=== PATIENT | female | born 1950 | race Caucasian/White ===

== ENCOUNTER → 2017-10-05 | Day surgery (SDC) | payer MEDICARE ==
[2017-09-28 10:44] LABS: BASOPHILS # (AUTO) 0.1 (0.0-0.1); EOSINOPHILS # (AUTO) 0.1 (0.0-0.4); HEMATOCRIT 41.9 % (34.2-44.1); HEMOGLOBIN 13.8 g/dL (12.0-16.0); LYMPHOCYTES # (AUTO) 1.6 (1.0-3.2); LYMPHOCYTES % 26.3 % (18.0-39.1); MEAN CORPUSCULAR HEMOGLOBIN 29.3 pg (28-32); MEAN CORPUSCULAR HGB CONC 32.9 g/dL (31-35); MONOCYTES # (AUTO) 0.5 (0.2-0.8); NEUTROPHILS # (AUTO) 3.8 (2.1-6.9); NEUTROPHILS % 62.5 % (38.7-80.0); PLATELET COUNT 296 x10e3/uL (140-360); RED BLOOD COUNT 4.71 x10e6/uL (3.6-5.1); RED CELL DISTRIBUTION WIDTH 13.5 % (11.7-14.4)
[~2017-10-05] MED LIST: CRESTOR10 MG; FENTANYL CITRATE/PF 100MCG/2 ML INJ ONE; HYDROCHLOROTHIA25 MG PO; HYOSCYAMINE SULFATE 0.5 MG/ML AMP ONE; KLOR-CON M2020 MEQ PO; MIDAZOLAM HCL 2 MG/2 ML VIAL ONE; MYRBETRIQ50 MG; PROPOFOL IV EMULSION 10 MG/ML 50 ML VIAL ONE; TAZTIA XT360 MG PO
--- NOTE | 2017-10-05 11:21 | Operative Report ---
DATE OF PROCEDURE: October 05, 2017 REFERRING PHYSICIAN: Kyle Moore MD PROCEDURES PERFORMED 1. Esophagogastroduodenoscopy with biopsies. 2. Colonoscopy with polypectomy. INDICATIONS FOR EGD: Acid reflux. INDICATIONS FOR COLONOSCOPY: Colorectal cancer screening and family history of colon cancer. MEDICATION: Patient was done under MAC. Please see anesthesiologist's note. PROCEDURE: With the patient in the left lateral decubitus position, the flexible fiberoptic Olympus gastroscope was introduced into the esophagus under direct visualization without any difficulty. There was some patchy erythema noted in the distal esophagus. The scope was then advanced with ease into the stomach, traversing a small sliding hiatal hernia. Mucosa overlying the antrum and the body revealed some patchy erythema and low-grade to moderate edema, and biopsies were obtained and sent to stain for H. pylori. Pylorus appeared to be of normal contour and shape. It was intubated with ease, and the scope was advanced all the way to the 2nd portion of the duodenum. The scope was then withdrawn slowly. Mucosa overlying the proximal 2nd portion and the duodenal bulb appeared to be within normal limits. The scope was then withdrawn back into the stomach and retroflexed, and the mucosa overlying the fundus and cardia appeared to be within normal limits. The scope was then straightened out. The stomach was decompressed. The scope was subsequently withdrawn. Patient tolerated the procedure well. IMPRESSION 1. Distal esophagitis. 2. Small sliding hiatal hernia. 3. Gastritis, biopsied. Biopsies sent to stain for H. pylori. PLAN: Follow up histology. Initiate Protonix 40 mg 1 p.o. q.a.m. a.c. The patient was then turned around. After adequate lubrication of the anal canal, a flexible fiberoptic Olympus colonoscope was inserted into the rectum with ease and advanced all the way to the cecum. A minute polyp was hot biopsied from the cecum. The ascending, transverse and descending appeared to be within normal limits. Three minute polyps were hot biopsied from the sigmoid colon, and 3 minute hyperplastic-appearing polyps were hot biopsied from the rectum. The scope was then retroflexed into the distal rectum, and small internal hemorrhoids were noted, none of which was actively bleeding. The scope was then straightened out. It was subsequently withdrawn. Patient tolerated the procedure well. IMPRESSION 1. Cecal polyp, hot biopsied. 2. Sigmoid polyps times 3, hot biopsied. 3. Rectal polyps times 3, hot biopsied. 4. Internal hemorrhoids, none actively bleeding. PLAN: Follow up histology. Initiate high-fiber, low-fat diet. Initiate high-fiber supplement. Patient will need a followup colonoscopy in 3 years. Job#: [id number] cc:KYLE MOORE MD
== END | disposition home or self-care (01) ==
LOC: OR 08:07
PROVIDERS: ATTEND Internal Medicine Gastroenterology
DX: Z12.11 Encounter for screening for malignant neoplasm of colon (principal); D12.0 Benign neoplasm of cecum; D12.5 Benign neoplasm of sigmoid colon; K62.1 Rectal polyp; K29.70 Gastritis, unspecified, without bleeding; K20.9 Esophagitis, unspecified; K44.9 Diaphragmatic hernia without obstruction or gangrene; K64.8 Other hemorrhoids; I10 Essential (primary) hypertension; Z01.810 Encounter for preprocedural cardiovascular examination; Z01.812 Encounter for preprocedural laboratory examination; Z85.828 Personal history of other malignant neoplasm of skin; Z80.0 Family history of malignant neoplasm of digestive organs
CPT/HCPCS: 36415; 43239; 45384; 85025; 93005; J1980; J2250; 45378

== ENCOUNTER → 2021-02-20 | Outpatient (CLI) | payer MEDICARE ==
[~2021-02-20] MED LIST changes: -FENTANYL CITRATE/PF 100MCG/2 ML INJ ONE; -HYOSCYAMINE SULFATE 0.5 MG/ML AMP ONE; +IOPAMIDOL 370 MG/ML 200 ML INFUS..BTL INJ ONE; -MIDAZOLAM HCL 2 MG/2 ML VIAL ONE; -PROPOFOL IV EMULSION 10 MG/ML 50 ML VIAL ONE; +SODIUM CHLORIDE 0.9% 50ML 50 ML ONE
== END ==
LOC: CT 09:24
PROVIDERS: ATTEND Internal Medicine
DX: R07.9 Chest pain, unspecified (principal)
CPT/HCPCS: 71275; Q9967

== ENCOUNTER → 2021-06-06 | Day surgery (SDC) | payer MEDICARE ==
[2021-06-04 09:50] LABS: BASOPHILS # (AUTO) 0.1 (0.0-0.1); BASOPHILS % 1.1 % (0.0-1.0); EOSINOPHILS # (AUTO) 0.1 (0.0-0.4); EOSINOPHILS % 1.5 % (0.0-6.0); HEMATOCRIT 39.9 % (34.2-44.1); HEMOGLOBIN 12.6 g/dL (12.0-16.0); LYMPHOCYTES # (AUTO) 1.5 (1.0-3.2); LYMPHOCYTES % 27.7 % (18.0-39.1); MEAN CORPUSCULAR HEMOGLOBIN 28.3 pg (28-32); MEAN CORPUSCULAR HGB CONC 31.6 g/dL (31-35); MEAN CORPUSCULAR VOLUME 89.7 fL (81-99); MONOCYTES # (AUTO) 0.5 (0.2-0.8); MONOCYTES % 9.6 % (4.4-11.3); NEUTROPHILS # (AUTO) 3.3 (2.1-6.9); NEUTROPHILS % 59.9 % (38.7-80.0); PLATELET COUNT 317 x10e3/uL (140-360); RED BLOOD COUNT 4.45 x10e6/uL (3.6-5.1); RED CELL DISTRIBUTION WIDTH 14.2 % (11.7-14.4)
[~2021-06-06] MED LIST changes: +FENTANYL CITRATE/PF 100MCG/2 ML INJ ONE; +HYOSCYAMINE SULFATE 0.5 MG/ML INJ ONE; -IOPAMIDOL 370 MG/ML 200 ML INFUS..BTL INJ ONE; +LIDOCAINE HCL 2% LOCAL INJ 5 ML SDV VIAL INJ ONE; +METOCLOPRAMIDE HCL 10 MG/2ML VIAL ONE; +MIDAZOLAM HCL 2 MG/2 ML VIAL ONE; +PANTOPRAZOLE SO40 MG PO; +PROPOFOL IV EMULSION 10 MG/ML 20 ML VIAL ONE; -SODIUM CHLORIDE 0.9% 50ML 50 ML ONE
[2021-06-06 11:45] VITALS: BP 111/67
== END | disposition home or self-care (01) ==
LOC: OR 07:50
PROVIDERS: ATTEND Internal Medicine Gastroenterology
DX: K29.50 Unspecified chronic gastritis without bleeding (principal); Z86.010 Personal history of colon polyps; K31.7 Polyp of stomach and duodenum; K20.90 Esophagitis, unspecified without bleeding; K44.9 Diaphragmatic hernia without obstruction or gangrene; K57.30 Diverticulosis of large intestine without perforation or abscess without bleeding; K64.8 Other hemorrhoids; K31.9 Disease of stomach and duodenum, unspecified; I10 Essential (primary) hypertension; E78.5 Hyperlipidemia, unspecified; Z01.810 Encounter for preprocedural cardiovascular examination; Z01.812 Encounter for preprocedural laboratory examination; Z20.822 Contact with and (suspected) exposure to COVID-19; Z79.899 Other long term (current) drug therapy; Z85.828 Personal history of other malignant neoplasm of skin; Z80.0 Family history of malignant neoplasm of digestive organs
CPT/HCPCS: 36415; 43239; 45378; 85025; 93005; J1980; J2001; J2250; J2704; J2765; J3010; U0002

== ENCOUNTER → 2021-07-15 | Outpatient (CLI) | payer MEDICARE ==
[~2021-07-15] MED LIST changes: -FENTANYL CITRATE/PF 100MCG/2 ML INJ ONE; -HYOSCYAMINE SULFATE 0.5 MG/ML INJ ONE; -LIDOCAINE HCL 2% LOCAL INJ 5 ML SDV VIAL INJ ONE; -METOCLOPRAMIDE HCL 10 MG/2ML VIAL ONE; -MIDAZOLAM HCL 2 MG/2 ML VIAL ONE; -PROPOFOL IV EMULSION 10 MG/ML 20 ML VIAL ONE
== END ==
LOC: CT 15:23
PROVIDERS: ATTEND Internal Medicine Critical Care Medicine
DX: R05.2 Subacute cough (principal); R91.8 Other nonspecific abnormal finding of lung field; K21.9 Gastro-esophageal reflux disease without esophagitis; E66.3 Overweight
CPT/HCPCS: 71250

== ENCOUNTER → 2022-02-19 | Outpatient (CLI) | payer MEDICARE | LOC: CT 10:53 | PROVIDERS: ATTEND Internal Medicine Critical Care Medicine | DX: R05.2 Subacute cough (principal); R91.8 Other nonspecific abnormal finding of lung field; E66.3 Overweight; K21.9 Gastro-esophageal reflux disease without esophagitis; J30.2 Other seasonal allergic rhinitis | CPT/HCPCS: 71250 ==

== ENCOUNTER → 2024-11-08 | Day surgery (SDC) | payer MEDICARE ==
[2024-11-03 10:28] LABS: BASOPHILS # (AUTO) 0.1 (0.0-0.1); EOSINOPHILS # (AUTO) 0.1 (0.0-0.4); EOSINOPHILS % 1.3 % (0.0-6.0); HEMATOCRIT 38.2 % (34.2-44.1); HEMOGLOBIN 12.5 g/dL (12.0-16.0); LYMPHOCYTES # (AUTO) 1.5 (1.0-3.2); LYMPHOCYTES % 24.2 % (18.0-39.1); MEAN CORPUSCULAR HEMOGLOBIN 28.7 pg (28-32); MEAN CORPUSCULAR HGB CONC 32.7 g/dL (31-35); MEAN CORPUSCULAR VOLUME 87.8 fL (81-99); MONOCYTES # (AUTO) 0.5 (0.2-0.8); MONOCYTES % 7.8 % (4.4-11.3); NEUTROPHILS # (AUTO) 4.1 (2.1-6.9); NEUTROPHILS % 65.4 % (38.7-80.0); PLATELET COUNT 317 x10e3/uL (140-360); RED BLOOD COUNT 4.35 x10e6/uL (3.6-5.1); RED CELL DISTRIBUTION WIDTH 14.9 % (11.7-14.4); WHITE BLOOD COUNT 6.31 x10e3/uL (4.8-10.8)
[~2024-11-08] MED LIST changes: -CRESTOR10 MG; +CRESTOR10 MG PO; +GLUCAGON FOR INJ 1 MG VIAL ONE; +LIDOCAINE HCL 2% LOCAL INJ 5 ML SDV VIAL INJ ONE; +METOCLOPRAMIDE HCL 10 MG/2ML VIAL ONE; -MYRBETRIQ50 MG; +MYRBETRIQ50 MG PO; +PROPOFOL IV EMULSION 10 MG/ML 20 ML VIAL ONE; +PROPOFOL IV EMULSION 50 ML IV ONE; +VITAMIN D350 MC1 PO
[2024-11-08] MEDS: LACTATED RINGER'S 1,000 ML ONE (13:28)
[2024-11-08 15:28] VITALS: TEMP 97.5
[2024-11-08 16:00] VITALS: BP 126/66; PULSE 64; RESP 16; O2SAT 96
== END | disposition home or self-care (01) ==
LOC: OR 12:51
PROVIDERS: ATTEND Internal Medicine Gastroenterology
DX: K29.60 Other gastritis without bleeding (principal); Z86.0100 Personal history of colon polyps, unspecified; K31.7 Polyp of stomach and duodenum; K31.89 Other diseases of stomach and duodenum; K20.90 Esophagitis, unspecified without bleeding; K44.9 Diaphragmatic hernia without obstruction or gangrene; K21.9 Gastro-esophageal reflux disease without esophagitis; K57.30 Diverticulosis of large intestine without perforation or abscess without bleeding; K64.8 Other hemorrhoids; K86.89 Other specified diseases of pancreas; K76.0 Fatty (change of) liver, not elsewhere classified; I10 Essential (primary) hypertension; E78.5 Hyperlipidemia, unspecified; Z01.810 Encounter for preprocedural cardiovascular examination; Z01.812 Encounter for preprocedural laboratory examination; Z79.899 Other long term (current) drug therapy; Z85.828 Personal history of other malignant neoplasm of skin; Z80.0 Family history of malignant neoplasm of digestive organs
CPT/HCPCS: 36415; 43239; 43251; 45378; 85025; 93005; J1610; J2003; J2470; J2704 ×2; J2765; J7121